=== PATIENT | female | born 2000 | race Caucasian/White ===

== ENCOUNTER 2018-08-05 04:46 | Emergency (ER) | payer OTHER ==
[2018-08-05] MEDS: ONDANSETRON 4 MG INJ IV (06:12)
[2018-08-05] MEDS: METOCLOPRAMIDE 10 MG INJ IV (06:12)
[2018-08-05] MEDS: SOD CHLORIDE 0.9% 1,000 ML IV (06:13)
[2018-08-05 06:16] LABS: ADD UMIC YES; UR AMORPHOUS CRYSTAL FEW /HPF (NONE SEEN); UR ASCORBIC ACID NEGATIVE (NEGATIVE); UR BACTERIA FEW /HPF (NONE SEEN); UR BILIRUBIN (Dip) NEGATIVE (NEGATIVE); UR BLOOD (Dip) NEGATIVE (NEGATIVE); UR CLARITY CLOUDY (CLEAR); UR COLOR YELLOW (YELLOW); UR GLUCOSE (Dip) NEGATIVE (NEGATIVE); UR KETONES (Dip) 1+ mg/dL (NEGATIVE); UR LEUKOCYTE ESTERASE (Dip) TRACE Leu/ul (NEGATIVE); UR MUCUS FEW /HPF (NONE SEEN); UR NITRITE (Dip) NEGATIVE (NEGATIVE); UR RBC 3 /HPF (0-5); UR SPECIFIC GRAVITY (Dip) 1.023 (1.003-1.030); UR SQUAMOUS EPITHELIAL CELL FEW /HPF (FEW); UR TOTAL PROTEIN (Dip) NEGATIVE (NEGATIVE); UR UROBILINOGEN (Dip) NEGATIVE (NEGATIVE); UR WBC 18 /HPF (0-5)
[2018-08-05 06:20] LABS: ADD MAN DIFF? NO
[2018-08-05 06:24] LABS: WHITE BLOOD COUNT 15.7 10^3/ul (4.8-10.8)
[2018-08-05 06:24] LABS: AMPHETAMINE/METHAMPHETAMINE Negative (NEGATIVE); BARBITURATES Negative (NEGATIVE); BASOPHILS % 0.2 % (0.0-2.0); BENZODIAZEPINES Negative (NEGATIVE); CANNABINOIDS Positive (NEGATIVE); COCAINE Negative (NEGATIVE); HEMATOCRIT 42.6 % (37.0-47.0); LYMPHOCYTES # 2.3 10^3/ul (0.8-2.9); LYMPHOCYTES % 14.3 % (18.0-55.0); MEAN CORPUSCULAR HEMOGLOBIN 28.8 pg (29.0-33.0); MEAN CORPUSCULAR HGB CONC 32.9 g/dl (32.0-37.0); MEAN CORPUSCULAR VOLUME 87.7 fl (72.0-104.0); MONOCYTE # 0.3 10^3/ul (0.3-0.9); MONOCYTES % 1.9 % (0.0-13.0); OPIATES Negative (NEGATIVE); PLATELET COUNT 429 10^3/UL (140-415); RED BLOOD COUNT 4.86 10^6/ul (4.20-5.40); RED CELL DISTRIBUTION WIDTH 13.3 % (11.5-14.5)
[2018-08-05] MEDS: MULTIVITAMINS 10 ML, THIAMINE 100 MG, FOLIC ACID 1 MG, MAGNESIUM SULFATE 2 GM in SOD CH... IV (06:33)
[2018-08-05 06:38] LABS: ALANINE AMINOTRANSFERASE 23 IU/L (13-69); ALBUMIN/GLOBULIN RATIO 1.56; ALKALINE PHOSPHATASE 119 IU/L (42-121); ANION GAP 16 (5-13); ASPARTATE AMINO TRANSFERASE 25 IU/L (15-46); BILIRUBIN,INDIRECT 0.1 mg/dl (0-1.1); BILIRUBIN,TOTAL 0.1 mg/dl (0.2-1.3); BLOOD UREA NITROGEN 11 mg/dl (7-20); CALCIUM 9.9 mg/dl (8.4-10.2); CARBON DIOXIDE 21 mmol/L (21-31); CHLORIDE 111 mmol/L (97-110); CREATININE 0.44 mg/dl (0.44-1.00); Estimated GFR > 60 mL/min (>60); GLUCOSE 128 mg/dl (70-220); LIPASE 46 U/L (23-300); POTASSIUM 3.9 mmol/L (3.5-5.1); SODIUM 148 mmol/L (135-144); TOTAL PROTEIN 8.2 g/dl (6.1-8.1)
[2018-08-05] MEDS: LORAZEPAM 2 MG INJ IV (06:39)
[2018-08-05] MEDS: CEFTRIAXONE 2 GM/50 ML (PMX) 50 ML IVPB (08:01)
== END 2018-08-05 08:52 | disposition home or self-care (01) ==
LOC: FTE 04:46
DX: N39.0 Urinary tract infection, site not specified (principal)
CPT/HCPCS: 76705; 80053; 80307; 81001; 81025; 83690; 85025; 87400; 96365; 96366; 96368; 96375; 99285-25